=== PATIENT | male | born 1965 | race Caucasian/White ===

== ENCOUNTER 2017-02-23 11:23 | Emergency (ER) | payer OTHER ==
[2017-02-23 12:04] VITALS: RESP 19; TEMP 97.2
--- NOTE | 2017-02-23 12:49 | DI ---
XR RIBS W/PA CXR MIN 3VW,02/23/2017 11:49 AM: Clinical History: Trauma Previous Exam: None at this facility. Findings: Routine rib series is obtained, and demonstrates no evidence of rib fracture. The lungs are clear. The cardiomediastinum and bony thorax is unremarkable. There is no evidence of p leural effusion or pneumothorax. Mild degenerative changes of the acromioclavicular joint are seen. Impression: No rib fracture identified.
--- NOTE | 2017-02-23 14:05 | DI ---
XR CLAVICLE,02/23/2017 11:49 AM: Clinical History: Right shoulder pain Previous Exam: None at this facility. Findings: 2 views of the right clavicle are obtained, and demonstrate anatomic alignment without fractures. Mil d degenerative changes are seen of the right acromioclavicular joint. Impression: Normal right clavicle.
--- NOTE | 2017-02-24 01:30 | PDOC ---
General Adult HPI - General Chief Complaint: General Medical Stated Complaint: hit in R collar bone with airhose Date Seen by Provider: 02/23/17 Time Seen by Provider: 11:40 Source: POSITIVE: Patient Exam Limitations: POSITIVE: No limitations Nurse's Notes Reviewed & Considered: Yes - History of Present Illness Initial Comment: The patient is a 51-year-old male who is ambulatory into the emergency room. Patient was working on a large water transport truck. Patient states that a "suction valve"on the truck became over pressurized and exploded. The top of the valve struck the patient in the right upper anterior chest and over the medial aspect of the clavicle. Patient denies any associated head, neck, back, chest, abdominal or extremity trauma or pain. He has no shortness of breath. He has noted a contusion and an abrasion at the site of trauma; see diagram Have you received a tetanus shot in the past 10 years?: Yes Body Location Affected: REPORTS: Chest Timing: REPORTS: Abrupt Duration: 1 hour Severity: Moderate Quality: REPORTS: "Pain" (At site of trauma; see diagram) Context: REPORTS: Recent Trauma (As above) Modifying Factors: improves with: Other (Exacerbated by direct palpation) Similar Symptoms Previously: No Recent Care Received: REPORTS: Denies Any Prior Injuries Related to Current Complaint?: No - Patient Home Medications Home Medications: Home Medications NK [No Home Medications Reported] 02/23/17 - Patient Allergies Allergies/Adverse Reactions: Allergies Allergy/AdvReac Type Severity Reaction Status Date / Time No Known Allergies Allergy Verified 02/23/17 11:36 Past Medical History - heen HEENT History: Denies History Cardiovascular History: Denies History Respiratory History: Denies History Gastrointestinal History: GERD Additional Gastrointestinal History: state terrible heartburn frequently Genitourinary History: Denies History Endocrine History: Denies History Musculoskeletal History: Other (please comment) Prosthesis or Implant: No Additional Musculoskeletal History: STERNAL FRACTURE Neurological History: Denies History Blood Disorders: Denies History Psychiatric History: Denies History History of Sexually Transmitted Diseases: No Cancer History: Denies History In Past Year Been Physically Harmed or Verbally Threatened: No (PER PATIENT) History of MDRO: No History of Other Communicable Diseases: No Tobacco Use: Current Every Day Smoker Alcohol Use: None Substance Use Type: None Previous Surgical History: Yes Type / Date of Surgery: LEFT KNEE, RIGHT HAND Anesthesia Reactions: No Malignant Hyperthermia: No Family History of Malignant Hyperthermia: No Significant Family History: Heart disease, COPD, Renal disease Past Medical History Reviewed: Reviewed - No Changes ROS - Limitations ROS Limitations: No Limitations Constitution: REPORTS: Denies Symptoms Cardiovascular: REPORTS: Denies Cardiac Symptoms Respiratory: REPORTS: Denies Resp Symptoms Neurological: REPORTS: Denies Neuro Symptoms Gastrointestinal: REPORTS: Denies GI Symptoms Endocrine: REPORTS: Denies Symptoms Musculoskeletal: REPORTS: Recent Injury (Some pain on palpation over the upper anterior right chest and over the medial aspect of the right clavicle; see diagram.) Genitourinary: REPORTS: Denies Symptoms Eyes: REPORTS: Denies Symptoms ENT: REPORTS: Denies Symptoms Skin: REPORTS: Other (Contusion and abrasion right anterior chest; see diagram) Lympathic: REPORTS: Denies Lympathic Symptoms Immunologic: POSITIVE: Denies Symptoms Psychiatric: POSITIVE: Denies Psych Symptoms General Adult Exam - General Appearance General Appearance: POSITIVE: Alert, Cooperative, No Acute Distress. NEGATIVE: No Evidence of Trauma - HEENT HEENT: POSITIVE: Head Inspection Nml, Eyes Inspection Nml, Ears Inspection Nml, Nose Inspection Nml, Oral/Dental Inspect. Nml, Pharynx Inspect. Nml, PERRL, EOMI - Neck Neck: POSITIVE: Normal Inspection, Thyroid Normal - Respiratory Respiratory: POSITIVE: No Respiratory Distress, Breath Sounds Normal, Chest Non- Tender - Cardiovascular Cardiovascular: POSITIVE: Regular Rate & Rhythm, No Murmur, No Gallop, PMI Normal Peripheral Pulses: Radial (R): 2+, Radial (L): 2+ - Abdomen Abdomen: Soft: (All Quadrants), Normal Bowel Sounds: (All Quadrants), Denies Tenderness: (All Quadrants), No Splenomegaly: (All Quadrants), No Hepatomegaly: (All Quadrants), No Guarding: (All Quadrants), No Rebound: (All Quadrants), No Palpable Pulse: (All Quadrants), No Palpabale Mass: (All Quadrants), No Distention: (All Quadrants), No Rigidity: (All Quadrants) - Back Back: POSITIVE: Normal Inspection - Skin Skin: POSITIVE: Other (Contusion and abrasion right upper anterior chest; see diagram) - Extremities Extremity: Non-Tender: (All Extremities), Normal ROM: (All Extremities), Normal Inspection: (All Extremities) - Neurological / Psychological Neurological: POSITIVE: Oriented X3, 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 - Patient's Progress Pain Medication Addressed: POSITIVE: Yes (Recommended Advil or Tylenol) School/Work Release Addressed: POSITIVE: Yes (Patient advised she could return to work) Re-Examine Time: 12:30 Status: POSITIVE: Unchanged, Re-Examined - Consult Counseled: POSITIVE: Patient, Family (), RE: Radiology Results, RE: DX, RE: Need for F/U Patient Care Time - Estimated PCT Patient Care Time (In Minutes): 35 Vital Signs - VS Reviewed Vital Signs Reviewed: Yes Discharge Clinical Impression: Abrasion, Contusion Discharge Disposition: Discharged to Home Condition: Stable Patient Instructions Given at Discharge: Contusion in Adults (ED), Abrasion (ED ) Additional Instructions: You have some abrasions and a contusion to your right thorax. X-ray show no evidence of rib fractures or any lung injuries or clavicle fractures. I believe you're going to be fine. Advil or Tylenol for pain. Cool compresses locally. Please wash abrasions with soap and water daily and apply bacitracin daily. Return any time if condition worsens. Follow-up with your primary care provider. Follow Up With: NONE,NONE [Primary Care Provider] - (Follow-up with your primary care provider. Instructions as above. Return here anytime if condition worsens in any way.)
== END 2017-02-23 12:41 | disposition home or self-care (01) ==
LOC: ER 11:23
DX: S20.211A Contusion of right front wall of thorax, initial encounter (principal); S20.311A Abrasion of right front wall of thorax, initial encounter; R07.89 Other chest pain; M25.511 Pain in right shoulder; W37.8XXA Explosion and rupture of other pressurized tire, pipe or hose, initial encounter; Y99.0 Civilian activity done for income or pay
CPT/HCPCS: 71101; 73000; 99282; 99283